=== PATIENT | female | born 2000 | race Hispanic/Latino ===

== ENCOUNTER 2020-03-23 11:52 | Emergency (ER) | payer MEDICAID ==
[2020-03-23 12:24] LABS: BASOPHILS % (AUTO) 0.4 % (0.0-5.0); EOSINOPHILS % (AUTO) 1.6 % (0.0-8.0); HEMATOCRIT 38.4 % (36-48); LYMPHOCYTES % (AUTO) 17.1 % (21.0-51.0); MEAN CORPUSCULAR HEMOGLOBIN 28.7 pg (27.0-33.0); MEAN CORPUSCULAR HGB CONC 33.6 g/dL (32.0-36.0); MEAN CORPUSCULAR VOLUME 85.5 fL (80-100); MONOCYTES % (AUTO) 6.1 % (3.0-13.0); NEUTROPHILS % (AUTO) 74.2 % (40.0-77.0); PLATELET COUNT (AUTO) 244 K/uL (130-400); RED BLOOD CELL COUNT(AUTO) 4.49 MIL/uL (4.00-5.50); RED CELL DISTRIBUTION WIDTH 14.1 % (11.0-15.5); WHITE BLOOD COUNT (AUTO) 8.3 K/uL (4.8-10.8)
[2020-03-23 13:06] LABS: APPEARANCE,URINE Cloudy (CLEAR); BILIRUBIN,URINE Negative (NEGATIVE); COLOR,URINE Yellow (YELLOW); GLUCOSE, URINE (UA) Negative (NEGATIVE); KETONES,URINE Negative (NEGATIVE); LEUKOCYTE ESTERASE ,URINE Small (NEGATIVE); NITRATE,URINE Negative (NEGATIVE); OCCULT BLOOD,URINE Negative (NEGATIVE); PROTEIN,URINE Negative (NEGATIVE)
[2020-03-23 13:12] LABS: CREATININE 0.7 mg/dL (0.5-1.5); POTASSIUM 3.6 mmol/L (3.5-5.1)
[2020-03-23 13:17] LABS: ALBUMIN 3.3 g/dL (3.5-5.0); BILIRUBIN,TOTAL 0.7 mg/dL (0.2-1.0)
[2020-03-23 13:35] LABS: BACTERIA,URINE Moderate /HPF (None Seen); SQUAMOUS EPITHELIAL CELL,UR 30-50 /HPF (0-2)
[2020-03-23 13:36] LABS: RBC,URINE 0-1 /HPF (0-1)
== END 2020-03-23 13:48 | disposition home or self-care (01) ==
LOC: EDH 11:52
DX: O20.0 Threatened abortion (principal); O23.42 Unspecified infection of urinary tract in pregnancy, second trimester; Z3A.14 14 weeks gestation of pregnancy; Z88.0 Allergy status to penicillin
CPT/HCPCS: 36415; 76805; 80053; 81001; 85025; 86900; 86901; 87077; 87088; 87186

== ENCOUNTER 2020-08-19 15:17 | Observation (INO) | payer MEDICAID ==
[~2020-08-19] VITALS: Ht 167.6 cm; Wt 96.2 kg
[2020-08-19 16:48] LABS: APPEARANCE,URINE Clear (CLEAR); BILIRUBIN,URINE Negative (NEGATIVE); COLOR,URINE Yellow (YELLOW); GLUCOSE, URINE (UA) Negative (NEGATIVE); KETONES,URINE Negative (NEGATIVE); LEUKOCYTE ESTERASE ,URINE Moderate (NEGATIVE); NITRATE,URINE Negative (NEGATIVE); OCCULT BLOOD,URINE Negative (NEGATIVE); PH,URINE 5.5 (5.0-8.0); PROTEIN,URINE Negative (NEGATIVE)
[2020-08-19 17:09] LABS: BACTERIA,URINE Few /HPF (None Seen); MUCUS,URINE Rare LPF (None Seen); RBC,URINE 0-1 /HPF (0-1); SQUAMOUS EPITHELIAL CELL,UR Few /HPF (0-2)
[2020-08-19] MEDS ORDERED: LACTATED RINGERS 1000ML 1,000 ML IV SCH (17:30)
[2020-08-19] MEDS ORDERED: CEFTRIAXONE 1G VIAL ONE (18:05)
[2020-08-20] MEDS ORDERED: CEFTRIAXONE 1G VIAL IV SCH (09:00)
[2020-11-22] MEDS ORDERED: NADO40TA2 PO (10:22)
== END 2020-08-19 18:42 | disposition home or self-care (01) ==
LOC: EDH 15:17 → LDH 15:18
PROVIDERS: ADMIT Specialist; ATTEND Specialist
DX: O26.893 Other specified pregnancy related conditions, third trimester (principal); R10.10 Upper abdominal pain, unspecified; O99.413 Diseases of the circulatory system complicating pregnancy, third trimester; I45.81 Long QT syndrome; Z95.0 Presence of cardiac pacemaker; Z88.0 Allergy status to penicillin; Z3A.35 35 weeks gestation of pregnancy
CPT/HCPCS: 59025; 81001; 87088; 96361; 96374; 99284; G0378 ×3; J0696; J7120; 96360; 96365

== ENCOUNTER 2020-09-03 11:36 | Observation (INO) | payer MEDICAID ==
[~2020-09-03] VITALS: Ht 167.6 cm; Wt 96.6 kg
[2020-09-03 12:28] LABS: APPEARANCE,URINE Clear (CLEAR); BILIRUBIN,URINE Negative (NEGATIVE); COLOR,URINE Yellow (YELLOW); GLUCOSE, URINE (UA) Negative (NEGATIVE); KETONES,URINE Negative (NEGATIVE); LEUKOCYTE ESTERASE ,URINE Small (NEGATIVE); NITRATE,URINE Negative (NEGATIVE); OCCULT BLOOD,URINE Negative (NEGATIVE); PH,URINE 6.5 (5.0-8.0); PROTEIN,URINE Negative (NEGATIVE)
[2020-09-03 12:36] LABS: AMPHET/METH SCREEN,URINE NEGATIVE (NEGATIVE); BARBITURATE SCREEN, URINE NEGATIVE (NEGATIVE); BENZODIAZEPINES SCREEN,URINE NEGATIVE (NEGATIVE); CANNABINOID SCREEN,URINE NEGATIVE (NEGATIVE); COCAINE SCREEN,URINE NEGATIVE (NEGATIVE); OPIATE SCREEN,URINE NEGATIVE (NEGATIVE); PHENCYCLIDINE SCREEN,URINE NEGATIVE (NEGATIVE)
[2020-09-03 12:56] LABS: BACTERIA,URINE Few /HPF (None Seen); RBC,URINE 0-1 /HPF (0-1)
== END 2020-09-03 14:09 | disposition home or self-care (01) ==
LOC: EDH 11:36 → LDH 11:37
PROVIDERS: ADMIT Specialist; ATTEND Specialist
DX: O26.893 Other specified pregnancy related conditions, third trimester (principal); R10.2 Pelvic and perineal pain; O99.413 Diseases of the circulatory system complicating pregnancy, third trimester; I45.81 Long QT syndrome; Z86.16 Personal history of COVID-19; Z88.0 Allergy status to penicillin; Z3A.38 38 weeks gestation of pregnancy
CPT/HCPCS: 59025; 76819; 80305; 81001; 99284; G0378 ×2

== ENCOUNTER 2020-09-11 18:05 | Inpatient (IN) | payer MEDICAID ==
[~2020-09-11] VITALS: Ht 167.6 cm; Wt 96.6 kg
[2020-09-11] MEDS ORDERED: EPHEDRINE SULFATE 50 MG/ML AMPULE IVP PRN (18:15)
[2020-09-11] MEDS ORDERED: ROPIVACAINE 0.2% 100ML VIAL 100 ML EP SCH (18:15)
[2020-09-11] MEDS ORDERED: LACTATED RINGERS 500 ML 500 ML IV PRN (18:15)
[2020-09-11] MEDS ORDERED: MEPERIDINE-PF 50 MG/ML SYG IVP PRN (18:15)
[2020-09-11] MEDS ORDERED: NALOXONE HCL 0.4 MG/1 ML ML IV PRN (18:15)
[2020-09-11] MEDS ORDERED: PROMETHAZINE HCL 25 MG/ML 1ML AMPULE IM PRN (18:15)
[2020-09-11] MEDS ORDERED: MISOPROSTOL 25 MCG TABLET ONE ×2 (18:44→22:59)
[2020-09-11 18:53] LABS: HEMATOCRIT 32.3 % (36-48); MEAN CORPUSCULAR HEMOGLOBIN 23.4 pg (27.0-33.0); MEAN CORPUSCULAR HGB CONC 31.3 g/dL (32.0-36.0); MEAN CORPUSCULAR VOLUME 74.9 fL (80-100); NUCLEATED RED BLOOD CELLS 0.2 % (0.0-0.19); PLATELET COUNT (AUTO) 326 K/uL (130-400); RED BLOOD CELL COUNT(AUTO) 4.31 MIL/uL (4.00-5.50); WHITE BLOOD COUNT (AUTO) 8.8 K/uL (4.8-10.8)
[2020-09-11 19:00] LABS: APPEARANCE,URINE Clear (CLEAR); BILIRUBIN,URINE Small (NEGATIVE); COLOR,URINE Dark Yellow (YELLOW); GLUCOSE, URINE (UA) Negative (NEGATIVE); KETONES,URINE 15 mg/dL (NEGATIVE); LEUKOCYTE ESTERASE ,URINE Trace (NEGATIVE); NITRATE,URINE Negative (NEGATIVE); OCCULT BLOOD,URINE Negative (NEGATIVE); PROTEIN,URINE POS 1+ mg/dL (NEGATIVE)
[2020-09-11] MEDS ORDERED: MISOPROSTOL 100 MCG TABLET VG SCH (19:00)
[2020-09-11 19:03] LABS: AMPHET/METH SCREEN,URINE NEGATIVE (NEGATIVE); BARBITURATE SCREEN, URINE NEGATIVE (NEGATIVE); BENZODIAZEPINES SCREEN,URINE NEGATIVE (NEGATIVE); CANNABINOID SCREEN,URINE NEGATIVE (NEGATIVE); COCAINE SCREEN,URINE NEGATIVE (NEGATIVE); OPIATE SCREEN,URINE NEGATIVE (NEGATIVE); PHENCYCLIDINE SCREEN,URINE NEGATIVE (NEGATIVE)
[2020-09-11 19:10] LABS: BACTERIA,URINE Moderate /HPF (None Seen); MUCUS,URINE Many LPF (None Seen); SQUAMOUS EPITHELIAL CELL,UR Moderate /HPF (0-2)
[2020-09-12] MEDS: LACTATED RINGERS 1000ML 1,000 ML IV PRN ×3 (03:14→12:30)
[2020-09-12] MEDS ORDERED: OXYTOCIN-LR 20 UNITS/1000 ML 1,000 ML IV ONE (04:09)
[2020-09-12] MEDS ORDERED: OXYTOCIN-LR 20 UNITS/1000 ML 1,000 ML IV SCH ×2 (06:00→15:00)
[2020-09-12 07:10] VITALS: BP 127/71
[2020-09-12] MEDS ORDERED: MEPERIDINE-PF 50 MG/ML SYG ONE (10:38)
[2020-09-12] MEDS ORDERED: PROMETHAZINE HCL 25 MG/ML 1ML AMPULE IM PRN (10:45)
[2020-09-12] MEDS ORDERED: MEPERIDINE-PF 50 MG/ML SYG IVP PRN (10:45)
[2020-09-12] MEDS ORDERED: LIDOCAINE HCL 1% 20 ML VIAL ONE (13:32)
[2020-09-12] MEDS ORDERED: DIPH,PERTUSS(ACELL),TET VAC/PF 0.5 ML VIAL IM PRN (14:30)
[2020-09-12] MEDS ORDERED: ACETAMINOPHEN 325 MG TAB PO PRN (14:30)
[2020-09-12] MEDS ORDERED: BENZOCAINE/LANOLIN/ALOE VERA 60 ML AEROSOL TP PRN (14:30)
[2020-09-12] MEDS ORDERED: WITCH HAZEL 1 PAD TP PRN (14:30)
[2020-09-12] MEDS ORDERED: ACETAMINOPHEN WITH CODEINE 1 TAB TAB PO PRN (14:30)
[2020-09-12] MEDS ORDERED: LANOLIN 30GM OINTMENT TP PRN (14:30)
[2020-09-12 15:50] VITALS: BP 122/75
[2020-09-12] MEDS: IBUPROFEN 600 MG TABLET PO PRN (16:11)
[2020-09-12 19:30] VITALS: BP 130/70
[2020-09-12] MEDS: DOCUSATE SODIUM 100 MG CAP PO SCH (21:12)
[2020-09-13 00:18] VITALS: BP 101/57
[2020-09-13 03:51] VITALS: BP 123/82
[2020-09-13] MEDS: IBUPROFEN 600 MG TABLET PO PRN ×2 (03:58→09:22)
[2020-09-13 07:45] VITALS: BP 120/84
[2020-09-13 08:14] LABS: HEPATITIS Bs ANTIGEN SCREEN P Negative (Negative)
[2020-09-13] MEDS: DOCUSATE SODIUM 100 MG CAP PO SCH (09:21)
[2020-09-13 11:29] VITALS: BP 105/65
[2020-11-22] MEDS ORDERED: NADO40TA2 PO (10:22)
== END 2020-09-13 15:25 | disposition home or self-care (01) | DRG 560 ==
LOC: LDH 18:05 → WSH 09-12 15:50
PROVIDERS: ADMIT Specialist; ATTEND Specialist
PROC: 10E0XZZ Delivery of Products of Conception, External Approach (ICD-10-PCS; principal; 2020-09-12)
PROC: 0UQMXZZ Repair Vulva, External Approach (ICD-10-PCS; 2020-09-12)
PROC: 3E0234Z Introduction of Serum, Toxoid and Vaccine into Muscle, Percutaneous Approach (ICD-10-PCS; 2020-09-12)
DX: O71.82 Other specified trauma to perineum and vulva (principal); Z23 Encounter for immunization; Z3A.39 39 weeks gestation of pregnancy; Z37.0 Single live birth
CPT/HCPCS: 36415; 80305; 81001; 85027; 86592; 86850; 86900; 86901; 87088; 87340; 90715; G0378; J2175; J2590; J7120

== ENCOUNTER 2020-11-12 14:39 | Emergency (ER) | payer MEDICAID ==
[~2020-11-12] VITALS: Ht 167.6 cm; Wt 81.2 kg
[2020-11-12] MEDS ORDERED: CETI10CA5 PO (16:49)
[2020-11-12 17:46] VITALS: BP 133/71
== END 2020-11-12 17:47 | disposition home or self-care (01) ==
LOC: EDH 14:39
DX: J30.9 Allergic rhinitis, unspecified (principal); R09.89 Other specified symptoms and signs involving the circulatory and respiratory systems; Z88.0 Allergy status to penicillin
CPT/HCPCS: 99282

== ENCOUNTER 2020-11-25 07:38 | Day surgery (SDC) | payer MEDICAID ==
[2020-11-20 11:34] LABS: BASOPHILS % (AUTO) 1.3 % (0.0-5.0); EOSINOPHILS % (AUTO) 14.8 % (0.0-8.0); LYMPHOCYTES % (AUTO) 26.2 % (21.0-51.0); MEAN CORPUSCULAR HEMOGLOBIN 23.5 pg (27.0-33.0); MEAN CORPUSCULAR HGB CONC 30.3 g/dL (32.0-36.0); MEAN CORPUSCULAR VOLUME 77.8 fL (80-100); MONOCYTES % (AUTO) 7.2 % (3.0-13.0); NEUTROPHILS % (AUTO) 50.2 % (40.0-77.0); PLATELET COUNT (AUTO) 320 K/uL (130-400); RED BLOOD CELL COUNT(AUTO) 5.14 MIL/uL (4.00-5.50); RED CELL DISTRIBUTION WIDTH 18.6 % (11.0-15.5); WHITE BLOOD COUNT (AUTO) 6.7 K/uL (4.8-10.8)
[2020-11-22 10:02] VITALS: BP 138/82
[~2020-11-25] VITALS: Ht 167.6 cm; Wt 86.4 kg
[2020-11-25] VITALS (19 sets, daily range): BP systolic 111–136; BP diastolic 67–85
[~2020-11-25 07:38] MED LIST: NADO40TA2 PO
[2020-11-25] MEDS ORDERED: LACTATED RINGERS 1000ML 1,000 ML IV ONE (08:03)
[2020-11-25] MEDS ORDERED: MIDAZOLAM HCL 1 MG/ML 2ML VIAL ONE (08:45)
[2020-11-25] MEDS ORDERED: GLYCOPYRROLATE 1 MG/5 ML SYRINGE ONE (08:45)
[2020-11-25] MEDS ORDERED: LIDOCAINE PF 100MG/5ML (2%) SYRINGE 5ML ONE (08:45)
[2020-11-25] MEDS ORDERED: PROPOFOL 10 MG/ML 20ML VIAL IV ONE (08:45)
[2020-11-25] MEDS ORDERED: DEXAMETHASONE SOD PHOSPHATE 10MG/ML 1ML VIAL ONE (08:45)
[2020-11-25] MEDS ORDERED: SUCCINYLCHOLINE 200MG/10ML SYR ONE (08:45)
[2020-11-25] MEDS ORDERED: ROCURONIUM 10MG/1ML SYR 10 MG/ML ML ONE (08:46)
[2020-11-25] MEDS ORDERED: FENTANYL CITRATE PF 50 MCG/1 ML 2ML VIAL ONE ×2 (08:46→10:10)
[2020-11-25] MEDS ORDERED: NEOSTIGMINE 5MG/5ML SYR IV ONE (08:46)
[2020-11-25] MEDS ORDERED: ONDANSETRON HCL 4 MG/2 ML VIAL ONE (08:46)
[2020-11-25] MEDS ORDERED: MEPERIDINE-PF 25 MG/ML SYG ONE (11:35)
== END 2020-11-25 12:55 | disposition home or self-care (01) ==
LOC: DAH 07:38
PROVIDERS: ATTEND Specialist
DX: Z30.2 Encounter for sterilization (principal); Z20.822 Contact with and (suspected) exposure to COVID-19; Z79.899 Other long term (current) drug therapy; Z88.0 Allergy status to penicillin; Z95.0 Presence of cardiac pacemaker
CPT/HCPCS: 36415 ×2; 58671; 84703; 85025; 86850 ×2; 86900 ×2; 86901 ×2; 87635; A4215 ×2; A4221; A4222; A4223; A4264; A4351; A4663; A4930; A6260; C1769 ×2; C9803; G0168; J0330; J1100; J2001; J2175; J2250; J2405; J2704; J2710; J3010 ×2; J3490; J7030; J7120

== ENCOUNTER 2021-09-10 16:18 | Emergency (ER) | payer MEDICAID ==
[~2021-09-10] VITALS: Ht 167.6 cm; Wt 72.6 kg
[2021-09-10 16:29] VITALS: BP 132/104
[2021-09-10 16:51] LABS: BASOPHILS % (AUTO) 0.5 % (0.0-5.0); EOSINOPHILS % (AUTO) 0.1 % (0.0-8.0); HEMATOCRIT 42.8 % (36-48); LYMPHOCYTES % (AUTO) 19.5 % (21.0-51.0); MEAN CORPUSCULAR HEMOGLOBIN 26.1 pg (27.0-33.0); MEAN CORPUSCULAR HGB CONC 31.3 g/dL (32.0-36.0); MEAN CORPUSCULAR VOLUME 83.3 fL (79-99); MONOCYTES % (AUTO) 7.5 % (3.0-13.0); NEUTROPHILS % (AUTO) 72.1 % (40.0-77.0); PLATELET COUNT (AUTO) 282 K/uL (130-400); RED BLOOD CELL COUNT(AUTO) 5.14 MIL/uL (4.00-5.50); RED CELL DISTRIBUTION WIDTH 15.2 % (11.0-15.5); WHITE BLOOD COUNT (AUTO) 11.7 K/uL (4.8-10.8)
[2021-09-10] MEDS ORDERED: KETOROLAC 30MG VIAL (30MG/ML) ONE (16:57)
[2021-09-10 17:00] LABS: CREATININE 0.9 mg/dL (0.5-1.5); POTASSIUM 3.3 mmol/L (3.5-5.1)
[2021-09-10] MEDS ORDERED: KETOROLAC 30MG VIAL (30MG/ML) IV ONE (17:00)
[2021-09-10 17:07] LABS: ALBUMIN 4.4 g/dL (3.5-5.0); BILIRUBIN,TOTAL 1.3 mg/dL (0.2-1.0); TOTAL PROTEIN, SERUM 8.1 g/dL (6.0-8.3)
[2021-09-10 17:09] LABS: HCG,QUAL RESULT NEGATIVE (NEGATIVE)
[2021-09-10 17:10] LABS: AMPHET/METH SCREEN,URINE NEGATIVE (NEGATIVE); BARBITURATE SCREEN, URINE NEGATIVE (NEGATIVE); BENZODIAZEPINES SCREEN,URINE NEGATIVE (NEGATIVE); CANNABINOID SCREEN,URINE POSITIVE (NEGATIVE); COCAINE SCREEN,URINE NEGATIVE (NEGATIVE); OPIATE SCREEN,URINE NEGATIVE (NEGATIVE); PHENCYCLIDINE SCREEN,URINE NEGATIVE (NEGATIVE)
== END 2021-09-10 17:21 | disposition left against medical advice (07) ==
LOC: EDH 16:18
DX: R07.89 Other chest pain (principal); F41.9 Anxiety disorder, unspecified; Z95.0 Presence of cardiac pacemaker; Z79.899 Other long term (current) drug therapy
CPT/HCPCS: 36415; 71045; 80053; 80305; 81025; 84484; 85025; 93005; 96374; 99285; J1885

== ENCOUNTER 2021-12-27 10:34 | Emergency (ER) | payer MEDICAID ==
[~2021-12-27] VITALS: Ht 167.6 cm; Wt 70.3 kg
[2021-12-27 10:50] LABS: BASOPHILS % (AUTO) 0.9 % (0.0-5.0); EOSINOPHILS % (AUTO) 5.2 % (0.0-8.0); HEMATOCRIT 45.4 % (36-48); LYMPHOCYTES % (AUTO) 30.7 % (21.0-51.0); MEAN CORPUSCULAR HEMOGLOBIN 27.5 pg (27.0-33.0); MEAN CORPUSCULAR HGB CONC 32.4 g/dL (32.0-36.0); MEAN CORPUSCULAR VOLUME 84.9 fL (79-99); NEUTROPHILS % (AUTO) 55.9 % (40.0-77.0); PLATELET COUNT (AUTO) 265 K/uL (130-400); RED BLOOD CELL COUNT(AUTO) 5.35 MIL/uL (4.00-5.50); WHITE BLOOD COUNT (AUTO) 6.5 K/uL (4.8-10.8)
[2021-12-27] MEDS ORDERED: KETOROLAC 30MG VIAL (30MG/ML) IVP ONE (11:30)
[2021-12-27 12:13] LABS: APPEARANCE,URINE CLEAR (CLEAR); BILIRUBIN,URINE NEGATIVE (NEGATIVE); COLOR,URINE YELLOW (YELLOW); GLUCOSE, URINE (UA) NEGATIVE (NEGATIVE); KETONES,URINE 15 mg/dL (NEGATIVE); LEUKOCYTE ESTERASE ,URINE NEGATIVE (NEGATIVE); NITRATE,URINE NEGATIVE (NEGATIVE); OCCULT BLOOD,URINE TRACE-INTACT (NEGATIVE); PROTEIN,URINE NEGATIVE (NEGATIVE); UROBILINOGEN,URINE 0.2 mg/dL (0.2-1.0)
[2021-12-27 12:18] LABS: HCG,QUAL RESULT NEGATIVE (NEGATIVE)
[2021-12-27 12:19] LABS: BACTERIA,URINE Rare /HPF (None Seen); RBC,URINE 0-1 /HPF (0-1); SQUAMOUS EPITHELIAL CELL,UR Few /HPF (0-2); WBC,URINE 0-1 /HPF (0-1)
[2021-12-27] MEDS ORDERED: IBUP-2070 PO (12:20)
[2021-12-27 12:22] VITALS: BP 111/73
[2021-12-27 14:28] LABS: ALANINE AMINOTRANSFERASE 12 U/L (12-78); ALBUMIN 4.5 g/dL (3.5-5.0); ASPARTATE AMINOTRANSFERASE 14 U/L (10-37); CARBON DIOXIDE 24 mmol/L (21-32); CHLORIDE 104 mmol/L (101-111); GLOMERULAR FILTR. RATE CALC 74 mL/min (>60); GLUCOSE,RANDOM 110 mg/dL (70-105); POTASSIUM 3.8 mmol/L (3.5-5.1); SODIUM SERUM 143 mmol/L (136-145); TOTAL PROTEIN, SERUM 8.4 g/dL (6.0-8.3); UREA NITROGEN, BLOOD 9 mg/dL (7-18)
== END 2021-12-27 12:30 | disposition home or self-care (01) ==
LOC: EDH 10:34
DX: F43.9 Reaction to severe stress, unspecified (principal); R07.89 Other chest pain; F41.9 Anxiety disorder, unspecified; Z79.1 Long term (current) use of non-steroidal anti-inflammatories (NSAID); Z95.810 Presence of automatic (implantable) cardiac defibrillator; Z88.0 Allergy status to penicillin
CPT/HCPCS: 99285; 96374; 71045; 83735; 84484; 80053; 85025; 81001; 81025; 36415; 93005; J1885

== ENCOUNTER 2022-08-05 19:33 | Emergency (ER) | payer MEDICAID ==
[~2022-08-05] VITALS: Ht 167.6 cm; Wt 68.0 kg
[~2022-08-05 19:33] MED LIST changes: +IBUP-2070 PO
[2022-08-05 19:34] VITALS: BP 142/79
[2022-08-05 20:15] LABS: BASOPHILS % (AUTO) 0.8 % (0.0-5.0); EOSINOPHILS % (AUTO) 9.1 % (0.0-8.0); HEMATOCRIT 41.1 % (36-48); LYMPHOCYTES % (AUTO) 32.4 % (21.0-51.0); MEAN CORPUSCULAR HGB CONC 31.9 g/dL (32.0-36.0); MEAN CORPUSCULAR VOLUME 87.8 fL (79-99); MONOCYTES % (AUTO) 6.8 % (3.0-13.0); NEUTROPHILS % (AUTO) 50.7 % (40.0-77.0); PLATELET COUNT (AUTO) 217 K/uL (130-400); RED BLOOD CELL COUNT(AUTO) 4.68 MIL/uL (4.00-5.50); RED CELL DISTRIBUTION WIDTH 14.2 % (11.0-15.5); WHITE BLOOD COUNT (AUTO) 6.5 K/uL (4.8-10.8)
[2022-08-05 20:26] LABS: CARBON DIOXIDE 29 mmol/L (21-32); CHLORIDE 104 mmol/L (101-111); CREATININE 0.9 mg/dL (0.5-1.5); GLOMERULAR FILTR. RATE CALC 82 mL/min (>60); GLUCOSE,RANDOM 90 mg/dL (70-105); POTASSIUM 3.8 mmol/L (3.5-5.1); SODIUM SERUM 139 mmol/L (136-145); UREA NITROGEN, BLOOD 9 mg/dL (7-18)
[2022-08-05 20:31] LABS: ACETAMINOPHEN < 1 mcg/mL (10-30); ALANINE AMINOTRANSFERASE 16 U/L (12-78); ALBUMIN 4.2 g/dL (3.5-5.0); ASPARTATE AMINOTRANSFERASE 16 U/L (10-37); SALICYLATE < 2.8 mg/dL (2.8-20.0); TOTAL PROTEIN, SERUM 7.8 g/dL (6.0-8.3)
[2022-08-05 20:32] LABS: ALCOHOL, BLOOD < 3 mg/dL (0-10)
[2022-08-05 20:38] LABS: AMPHET/METH SCREEN,URINE NEGATIVE (NEGATIVE); BARBITURATE SCREEN, URINE NEGATIVE (NEGATIVE); BENZODIAZEPINES SCREEN,URINE NEGATIVE (NEGATIVE); CANNABINOID SCREEN,URINE POSITIVE (NEGATIVE); COCAINE SCREEN,URINE NEGATIVE (NEGATIVE); OPIATE SCREEN,URINE NEGATIVE (NEGATIVE); PHENCYCLIDINE SCREEN,URINE NEGATIVE (NEGATIVE)
[2022-08-05 20:45] LABS: APPEARANCE,URINE CLOUDY (CLEAR); BILIRUBIN,URINE NEGATIVE (NEGATIVE); COLOR,URINE LIGHT-YELLOW (YELLOW); GLUCOSE, URINE (UA) NEGATIVE (NEGATIVE); KETONES,URINE 5 mg/dL (NEGATIVE); LEUKOCYTE ESTERASE ,URINE NEGATIVE Leu/uL (NEGATIVE); NITRATE,URINE NEGATIVE (NEGATIVE); PROTEIN,URINE NEGATIVE (NEGATIVE); UROBILINOGEN,URINE 0.2 mg/dL (0.2-1.0)
[2022-08-05 20:51] LABS: BACTERIA,URINE FEW /HPF (None Seen); HYALINE CASTS, URINE 0-1 /LPF (0-1 /LPF); MUCUS,URINE RARE LPF (None Seen); SQUAMOUS EPITHELIAL CELL,UR MOD /HPF (0-2)
[2022-08-05] MEDS ORDERED: ONDANSETRON ODT 4MG TAB SL ONE (21:00)
[2022-08-05] MEDS ORDERED: PROMETHAZINE HCL 25 MG/ML 1ML AMPULE IM ONE (22:30)
[2022-08-05] MEDS ORDERED: ONDA4TAB10 SL (22:31)
[2022-08-05] MEDS ORDERED: ESCI5TAB16 PO (22:31)
[2022-08-05] MEDS ORDERED: PROM25TA7 PO (22:35)
== END 2022-08-05 22:43 | disposition home or self-care (01) ==
LOC: EDH 19:33
DX: F41.9 Anxiety disorder, unspecified (principal); F32.A Depression, unspecified; K52.9 Noninfective gastroenteritis and colitis, unspecified; R45.851 Suicidal ideations; Z95.810 Presence of automatic (implantable) cardiac defibrillator; Z88.8 Allergy status to other drugs, medicaments and biological substances
CPT/HCPCS: 99283; 80053; 80305; 84703; 85025; 36415; 96372; 81001; G0481; J2550